=== PATIENT | female | born 1950 | race African-American/Black ===

== ENCOUNTER 2016-07-07 15:13 | Outpatient (CLI) | payer MEDICARE, OTHER ==
[2016-07-07 15:41] LABS: BASOPHILS % (AUTO) 0.5 % (0.0-2.0); DIFF TOTAL % 100 %; EOSINOPHILS # (AUTO) 0.1 /CMM (0.0-0.7); EOSINOPHILS % (AUTO) 1.8 % (0.0-6.0); HEMATOCRIT 46 % (33-45); HEMOGLOBIN 15.1 g/dL (11.5-14.8); LYMPHOCYTES # (AUTO) 2.1 /CMM (0.8-4.8); LYMPHOCYTES % (AUTO) 36.3 % (20.0-44.0); MEAN CORPUSCULAR HEMOGLOBIN 30 PG (26.0-33.0); MEAN CORPUSCULAR HGB CONC 33 g/dl (31.0-36.0); MEAN CORPUSCULAR VOLUME 93 fL (82-100); MONOCYTES # (AUTO) 0.3 /CMM (0.1-1.30); MONOCYTES % (AUTO) 4.8 % (2.0-12.0); NEUTROPHILS # (AUTO) 3.4 /CMM (1.8-8.9); NEUTROPHILS % (AUTO) 56.6 % (43.0-81.0); PLATELET COUNT (AUTO) 296 /CMM (150-450); RED BLOOD CELL COUNT(AUTO) 4.96 MIL/uL (4.0-5.2); WHITE BLOOD COUNT (AUTO) 5.9 K/uL (4.3-11.0)
[2016-07-07 16:24] LABS: ALBUMIN 3.9 g/dL (3.4-5.0); BILIRUBIN,TOTAL 0.9 mg/dL (0.2-1.0); CALCIUM, SERUM 9.5 mg/dL (8.5-10.1); CREATININE 0.8 mg/dL (0.6-1.3); POTASSIUM 4.1 mmol/L (3.5-5.1); TOTAL PROTEIN, SERUM 8.4 g/dL (6.4-8.2)
== END 2016-07-07 23:59 | disposition home or self-care (01) ==
LOC: LAB 15:13
PROVIDERS: ATTEND Internal Medicine
DX: Z01.818 Encounter for other preprocedural examination (principal); Z01.12 Encounter for hearing conservation and treatment; I70.90 Unspecified atherosclerosis
CPT/HCPCS: 36415; 71020-TC; 80053-TC; 80061-TC; 85025-TC; 85730-TC

== ENCOUNTER 2016-09-18 16:31 | Inpatient (IN) | payer OTHER, MEDICARE ==
[~2016-09-18] VITALS: Ht 167.6 cm; Wt 84.8 kg
--- NOTE | 2016-09-18 17:15 | NUR ---
PT BIB FAMILY TO ER BED 12 C/O GENERALIZED WEAKNESS, LOWER BACK PAIN AND DIZZINESS X TODAY. ALSO C/O HYPERTENSION AND HIGH BLOOD SUGAR. GOWNED AND PLACED ON MONITOR. AWAITING MD MARIA.
--- NOTE | 2016-09-18 17:18 | NUR ---
PRETTY KING AT BEDSIDE FOR EVAL.
--- NOTE | 2016-09-18 17:28 | NUR ---
STENOTYPE OPERATOR AT BEDSIDE FOR BLOOD DRAW.
[2016-09-18] MEDS ORDERED: ONDANSETRON HCL/PF 4 MG/2 ML VIAL IVP ONE (17:30)
[2016-09-18] MEDS ORDERED: IV NS 0.9% 500 ML BAG IV ONE (17:30)
[2016-09-18 17:34] LABS: BASOPHILS # (AUTO) 0.2 /CMM (0.0-0.2); BASOPHILS % (AUTO) 1.7 % (0.0-2.0); EOSINOPHILS % (AUTO) 0.1 % (0.0-6.0); HEMATOCRIT 53 % (33-45); HEMOGLOBIN 16.4 g/dL (11.5-14.8); LYMPHOCYTES # (AUTO) 0.9 /CMM (0.8-4.8); LYMPHOCYTES % (AUTO) 9.2 % (20.0-44.0); MEAN CORPUSCULAR HEMOGLOBIN 30 PG (26.0-33.0); MEAN CORPUSCULAR HGB CONC 31 g/dl (31.0-36.0); MEAN CORPUSCULAR VOLUME 97 fL (82-100); MONOCYTES # (AUTO) 0.2 /CMM (0.1-1.30); MONOCYTES % (AUTO) 2.1 % (2.0-12.0); NEUTROPHILS % (AUTO) 86.9 % (43.0-81.0); PLATELET COUNT (AUTO) 302 /CMM (150-450); RDW COEFFICIENT OF VARIATION 12.3 (11.5-15.0); RED BLOOD CELL COUNT(AUTO) 5.53 MIL/uL (4.0-5.2); WHITE BLOOD COUNT (AUTO) 10.3 K/uL (4.3-11.0)
[2016-09-18] MEDS ORDERED: IV NS 0.9% 500 ML IV ONE (17:37)
[2016-09-18] MEDS ORDERED: ONDANSETRON HCL/PF 4 MG/2 ML VIAL ONE (17:37)
[2016-09-18] MEDS ORDERED: IV SET PRIMARY 1 EA INFUS.SET MC ONE ×2 (17:37→19:19)
[2016-09-18 17:46] LABS: CALCIUM, SERUM 10.2 mg/dL (8.5-10.1); INR 1.09 (0.87-1.13); POTASSIUM 4.5 mmol/L (3.5-5.1); PROTHROMBIN TIME 11.4 SECS (9.5-12.7)
[2016-09-18 17:50] LABS: BILIRUBIN,TOTAL 1.3 mg/dL (0.2-1.0)
[2016-09-18 17:51] LABS: ALBUMIN 4.3 g/dL (3.4-5.0); BILIRUBIN,DIRECT 0.4 mg/dL (0.0-0.2); TOTAL PROTEIN, SERUM 9.5 g/dL (6.4-8.2)
--- NOTE | 2016-09-18 18:09 | NUR ---
CALLED NURSING SUP. FOR ICU BED
[2016-09-18] MEDS ORDERED: HYDR25TA4 PO (18:23)
[2016-09-18] MEDS ORDERED: METF850T2 PO (18:23)
[2016-09-18] MEDS ORDERED: AMLO5TAB2 PO (18:23)
[2016-09-18] MEDS ORDERED: IV NS 0.9% 3,000 ML ONE (18:28)
[2016-09-18] MEDS ORDERED: IV SET PRIMARY PUMP SET 1 EA INFUS.SET MC ONE ×3 (18:29→20:59)
[2016-09-18] MEDS ORDERED: IV NS 0.9% 1,000 ML BAG IV ONE ×2 (18:30→19:30)
--- NOTE | 2016-09-18 18:33 | NUR ---
DR.BRENT SERNA
--- NOTE | 2016-09-18 19:14 | NUR ---
REPAGED , DR.LING WARREN CASING IN LINE FEEDER, TRANSFERRED CALL TO
[2016-09-18] MEDS ORDERED: IV NS 0.9% 1,000 ML ONE (19:19)
[2016-09-18 20:18] LABS: APPEARANCE,URINE Clear (CLEAR); BILIRUBIN,URINE Negative (NEGATIVE); BLOOD, URINE Moderate Ery/uL (NEGATIVE); COLOR,URINE Yellow (YELLOW); KETONES,URINE Negative (NEGATIVE); LEUKOCYTE ESTERASE ,URINE Large (NEGATIVE); NITRITE, URINE Positive (NEGATIVE); PROTEIN,URINE 30 mg/dl (NEGATIVE); UGLUCOSE Negative (NEGATIVE); UROBILINOGEN,URINE 0.2 EU/dL (0.2)
[2016-09-18 20:36] LABS: ADD URINE CULTURE YES; BACTERIA,URINE Moderate /HPF (None Seen); SQUAMOUS EPITHELIAL CELL,UR Few /HPF (None Seen); WBC,URINE 21-50 /HPF (0-3)
--- NOTE | 2016-09-18 20:41 | NUR ---
REPORT GIVEN TO KARIS. PT AWAITING TRANSFER TO FLOOR.
[2016-09-18 20:50] LABS: ABG BASE EXCESS -13.5 mmol/L; ABG PCO2 22.8 mmHg (35.0-45.0); ABG PH 7.293 (7.350-7.450); ABG PO2 85.5 mmHg (75.0-100.0); AaDO2 36.9 mmHg; COHb 0.8 % (0.5-1.5); MetHb 0.5 % (0.0-1.5); O2Hb 93.8 % (94.0-97.0); SITE, ABG Right Radial; VENT MODE, BG RM AIR
[2016-09-18] MEDS: INSULIN REGULAR, HUMAN 100 UNIT in IV NS 0.9% 99 ML IV PRN ×4 (20:54→22:16)
[2016-09-18] MEDS ORDERED: CEFTRIAXONE 1GM BAG (ER ONLY) 50 ML IV ONE (20:59)
[2016-09-18] MEDS ORDERED: CEFTRIAXONE 1GM BAG (ER ONLY) 1 GM/50 ML PIGGYBACK IV ONE (21:00)
--- NOTE | 2016-09-18 21:17 | NUR ---
COLD WATER MACHINE OPERATOR DF I RECEIVED PT TO ROOM#260 FROM ER, PT A/OX4 LAST ACCU CHECK@2035 >600 PT STARTED ON INSULIN GTT AT 6UNITS/HR PT RECEIVED WITH ROCEPHIN ORDER ENDORSED TO ICU. PT RECEIVED WITH NO ADMITTING ORDERS INSTRUCTOR DRAMATIC ARTSNANCY TEE TO INQUIRE ON ADMITTING ORDERS.I WILL RECHECK PT,S GLUCOSE IN 30 MINUTES TO 1 HOUR. Addendum: 09/18/16 at 2157 by RACHELLE CAMPOS RN ADMITTING ORDERS RECEIVED FROM ARNOL DUMONT NP INSULIN GTT START ALGORITHM1 FOLLOW NON DKA PROTOCOL,NS@8OML/HR,LABS IN AM.I WAS ADVISED BY OSMAN DUMONT TO CALL THE [facility](I ADVISED HER WE DO NOT HAVE THE SERVICE HERE)PER LANE MARKER INSTALLER DR ROCHA TO SEE PT IN AM.
[2016-09-18 21:25] VITALS: BP 138/77
[2016-09-18 21:26] VITALS: BP 138/77
[2016-09-18 21:30] VITALS: BP 133/75
[2016-09-18 22:00] VITALS: BP 118/65
[2016-09-18] MEDS ORDERED: INSULIN REGULAR, HUMAN 100 UNIT in IV NS 0.9% 99 ML IV PRN ×2 (22:00)
[2016-09-18] MEDS ORDERED: ONDANSETRON HCL/PF 4 MG/2 ML VIAL IV PRN (22:00)
[2016-09-18] MEDS ORDERED: IV NS 0.9% 1,000 ML BAG IV PRN (22:00)
--- NOTE | 2016-09-18 22:04 | NUR ---
PENOLOGY TEACHER DF PT WITH GLUCOSE ON ACCU CHECK ABOVE 600 STAT GLUCOSE ORDERED/BMP. PER PROTOCOL MOVED TO ALGORITHM 2 2ND GLUCOSE DID NOT DECREASE BY 50-70MG/DL WITHIN 1 HOUR. NEW INSULIN GTT RATES OF 10 UNITS HOUR/IV.
--- NOTE | 2016-09-18 22:54 | NUR ---
SLEEPER CUTTER DF STAT BMP DRAWN AWAITING RESULTS, PT GLUCOSE ON GLUCOMETER SHOWING ABOVE 600 PER PROTOCOL PT CONTINUED ON 10UNITS/HR.
[2016-09-18 23:00] VITALS: BP 120/66
[2016-09-18 23:14] LABS: CALCIUM, SERUM 8.3 mg/dL (8.5-10.1); CREATININE 1.4 mg/dL (0.6-1.3); POTASSIUM 3.4 mmol/L (3.5-5.1)
[2016-09-18] MEDS ORDERED: KETOROLAC TROMETHAMINE INJ 30 MG/ML VIAL ONE (23:58)
--- NOTE | 2016-09-18 23:59 | NUR ---
REGISTERED DENTAL ASSISTANT RDA DF PT C/O OF ABDOMINAL PAIN 09/16 PT ADMITTING K OF 4.5 NOW K OF 3.4 (20 MEQ KDUR PO X1 TO BE GIVEN) NO FURTHER ORDERS. PT VSS. PT A/OX4 PT DROWSY,PASSIVE. PT CONVERSES STATES SHE IS TIRED AND DIDNT HAVE MUCH SLEEP PRIOR TO ADMISSION. LAST BS OF 511 ON INSULIN GTT @ 10 UNITS/HOUR PER ALGORITHM 2. Addendum: 09/19/16 at 0023 by RACHELLE CAMPOS RN TORADOL 30MG IVP PRN ABDOMINAL PAIN PT REPORTS SHE NOT ALLERGIC TO IBUPROFEN WHEN TAKEN ORALLY GIVES HER STOMACH ACHE NO OTHER ADVERSE REACTION REPORTED. MD/VALVE SETTER AWARE MEDICATED ORDERED. Addendum: 09/19/16 at 0111 by RACHELLE CAMPOS RN KCL ORDER CHANGED TO IV PT REFUSES PO INTAKE 2ND ABD PAIN. SEE VALVE SETTER ORDERS.
[2016-09-19] VITALS (31 sets, daily range): BP systolic 98–167; BP diastolic 52–107
[2016-09-19] MEDS ORDERED: KETOROLAC TROMETHAMINE INJ 30 MG/ML VIAL IV PRN
[2016-09-19] MEDS ORDERED: POTASSIUM CHLORIDE 20 MEQ TAB.PRT.SR PO ONE (00:01)
[2016-09-19] MEDS: POTASSIUM CHLORIDE 20 MEQ TAB.PRT.SR PO ONE ×2 (00:05→00:19)
[2016-09-19] MEDS ORDERED: POTASSIUM CL. PREMIX PERIPHER. 100 ML ONE (00:09)
[2016-09-19] MEDS ORDERED: IV SET PRIMARY PUMP SET 1 EA INFUS.SET MC ONE (00:10)
[2016-09-19] MEDS ORDERED: POTASSIUM CHLORIDE 10 MEQ/50 ML PREMIXED IVPB FOR PERIPHERAL LINE IV ONE (00:30)
--- NOTE | 2016-09-19 01:40 | NUR ---
SEED AND FERTILIZER SPECIALIST DF LAST ACCU CHECK OF 285 PER NON DKA INSULIN ORDERS ALGORITHM 2 BS OF 285 6 UNITS/HR.
--- NOTE | 2016-09-19 04:21 | NUR ---
PYROMETER TEMPERATURE REGULATOR DF LAST ACCU CHECK OF 243 PER NON DKA INSULIN ORDERS ALGORITHM 2 BS OF 285 5 UNITS/HR.
[2016-09-19 04:59] LABS: BASOPHILS % (AUTO) 0.2 % (0.0-2.0); EOSINOPHILS % (AUTO) 0.1 % (0.0-6.0); HEMATOCRIT 44 % (33-45); HEMOGLOBIN 14.7 g/dL (11.5-14.8); LYMPHOCYTES # (AUTO) 1.8 /CMM (0.8-4.8); LYMPHOCYTES % (AUTO) 16.9 % (20.0-44.0); MEAN CORPUSCULAR HEMOGLOBIN 30 PG (26.0-33.0); MEAN CORPUSCULAR HGB CONC 33 g/dl (31.0-36.0); MEAN CORPUSCULAR VOLUME 92 fL (82-100); MONOCYTES # (AUTO) 0.8 /CMM (0.1-1.30); MONOCYTES % (AUTO) 7.3 % (2.0-12.0); NEUTROPHILS # (AUTO) 8.3 /CMM (1.8-8.9); NEUTROPHILS % (AUTO) 75.5 % (43.0-81.0); PLATELET COUNT (AUTO) 269 /CMM (150-450); RDW COEFFICIENT OF VARIATION 12.3 (11.5-15.0); RED BLOOD CELL COUNT(AUTO) 4.83 MIL/uL (4.0-5.2); WHITE BLOOD COUNT (AUTO) 10.9 K/uL (4.3-11.0)
[2016-09-19 05:09] LABS: CALCIUM, SERUM 8.5 mg/dL (8.5-10.1); CREATININE 1.3 mg/dL (0.6-1.3); POTASSIUM 3.6 mmol/L (3.5-5.1)
--- NOTE | 2016-09-19 07:20 | NUR ---
SPINNING BATH PATROLLER: pt.is able to seat up, able to use bathroom by report, was notified re fall risk precaution
[2016-09-19] MEDS ORDERED: IV NS 0.9% 1,000 ML IV PRN (08:00)
--- NOTE | 2016-09-19 08:00 | NUR ---
SHIPFITTER APPRENTICE pt.is drowsy now, no c/o pain, no any c/o now, reactive well, A/Ox1, SR, O2 sat., BP WNL, on insulin gtt, algorithm #2, IVF NS 80ml/h, pt.sister called, updated with pt.current condition
[2016-09-19] MEDS: METFORMIN 850 MG TABLET PO SCH ×2 (09:00→16:53)
[2016-09-19] MEDS ORDERED: HYDROCHLOROTHIAZIDE 25 MG TABLET PO SCH (09:00)
--- NOTE | 2016-09-19 09:05 | NUR ---
TANK OPERATOR: pi is on insulin gtt, hold glucophage
[2016-09-19] MEDS: AMLODIPINE BESYLATE 5 MG TABLET PO SCH (10:09)
--- NOTE | 2016-09-19 10:10 | NUR ---
DISTRESSER: pt.is A/Ox3, weak, no any acute pain now, SR, O2sat WNL, on insulin gtt/BS 163-197, refused to take bedsite commode, able to urinate
--- NOTE | 2016-09-19 13:51 | NUR ---
FINANCIAL SALES CONSULTANT: was in unit, updated with pt.current condition, VS, BG, insulin gtt, IVF, spoke with charge nurse, ordered start Levemir 30units q12h, stop insulin gtt in 1 hr, start insulin mild SS accuV AC&HS
[2016-09-19] MEDS ORDERED: DEXTROSE 50%-WATER 50 ML DISP.SYRIN IV PRN (14:00)
[2016-09-19] MEDS: INSULIN DETEMIR 100 UNIT/ML CARTRIDGE SQ SCH ×2 (14:10→21:18)
--- NOTE | 2016-09-19 14:24 | NUR ---
CHIEF CLERK: BS 178, Levemir 30units SQ was given, stop Insulin gtt at 16.00 order is in per
--- NOTE | 2016-09-19 14:28 | NUR ---
UTILITY HELICOPTER REPAIRER: confirmed: continue Glucophage 850mg PO BID and IVF, ok transfer pt. after insulin gtt will be stop, pt.family is in room, updated with POC, all above
--- NOTE | 2016-09-19 14:50 | NUR ---
PROP DRAWER: pt.family is in room/notified re POC, orders, VS, changed IVF for 1/2 NS@75ml/h
[2016-09-19] MEDS ORDERED: IV 1/2NS 1000 ML 1,000 ML IV ONE (15:00)
--- NOTE | 2016-09-19 17:15 | NUR ---
TIN RECOVERY WORKER: pt.is transferred to [facility] after full report for NANCY Killian
--- NOTE | 2016-09-19 17:20 | NUR ---
RN NOTES PT RECEIVED FROM ICU IN ROOM 111-1 , PT IS A/Ox4, RESPIRATION EVEN AND UNLABORED, ON RA , NO SOB NOTED, R HAND IV AND R AC IV SITES G 20, CLEAN AND DRY , IVF 1/2 NS AT 75CC/HR RUNNING VIA R HAND IV SITE, SUPPORTIVE FAMILY AT THE BEDSIDE, PT BYRON ANY DISTRESS AT THIS TIME, CONTINUE TO MONITOR PT CLOSELY AND NOTIFY MD FOR ANY SIGNIFICANT CHANGES .
[2016-09-19] MEDS: INSULIN REGULAR, HUMAN 100 UNIT/ML 3 ML VIAL SQ PRN ×2 (17:31→21:19)
[2016-09-19] MEDS: BLOOD SUGAR DIAGNOSTIC 1 EACH STRIP IN SCH ×2 (17:33→21:16)
[2016-09-19] MEDS: ACETAMINOPHEN W/ CODEINE#3 1 EA TABLET PO PRN ×2 (18:25→22:27)
[2016-09-19] MEDS: ATORVASTATIN 40 MG TABLET PO SCH (21:16)
[2016-09-20 04:00] VITALS: BP 121/76
[2016-09-20] MEDS: ACETAMINOPHEN W/ CODEINE#3 1 EA TABLET PO PRN ×3 (05:16→22:12)
[2016-09-20] MEDS: BLOOD SUGAR DIAGNOSTIC 1 EACH STRIP IN SCH ×4 (06:34→22:12)
[2016-09-20] MEDS: INSULIN REGULAR, HUMAN 100 UNIT/ML 3 ML VIAL SQ PRN ×3 (06:36→17:58)
--- NOTE | 2016-09-20 07:15 | NUR ---
RN INITIAL NOTES: Rec'd pt awake on bed, not in any distress, A/O x4, denies any pain/ discomfort. Pt on room air, no SOB noted, saturating at 98%. Pt has R AC G20 SL and R wrist G20 SL, both flushed, patent & intact w/ no signs of infection/ infiltration noted. Provided comfort & safety measures. Needs attended. Call light placed w/in reach. Bed kept low & in locked position. Will continue to monitor.
[2016-09-20 07:53] LABS: CALCIUM, SERUM 8.3 mg/dL (8.5-10.1); CREATININE 0.8 mg/dL (0.6-1.3)
[2016-09-20 08:00] VITALS: BP 118/79
[2016-09-20 08:04] LABS: POTASSIUM 2.7 mmol/L (3.5-5.1)
[2016-09-20] MEDS: ASPIRIN 81 MG TAB.CHEW PO SCH (08:28)
[2016-09-20] MEDS: METFORMIN 850 MG TABLET PO SCH ×2 (08:28→17:53)
[2016-09-20] MEDS: BENAZEPRIL HCL 10 MG TABLET PO SCH (08:29)
[2016-09-20] MEDS: AMLODIPINE BESYLATE 5 MG TABLET PO SCH (08:29)
[2016-09-20] MEDS: HYDROCHLOROTHIAZIDE 25 MG TABLET PO SCH (08:29)
--- NOTE | 2016-09-20 08:30 | NUR ---
RN NOTES: MD made aware of low potassium 2.7, w/ orders & carried out.
[2016-09-20] MEDS: INSULIN DETEMIR 100 UNIT/ML CARTRIDGE SQ SCH ×2 (08:33→22:20)
[2016-09-20] MEDS: POTASSIUM CHLORIDE 20 MEQ TAB.PRT.SR PO SCH ×3 (09:27→14:22)
--- NOTE | 2016-09-20 11:00 | NUR ---
RN NOTES: Pt positive for MRSA of urine. Isolation precaution observed. CN notified.
--- NOTE | 2016-09-20 11:23 | NUR ---
RN NOTES: Pt seen & examined by Dr. Baum.
[2016-09-20 16:00] VITALS: BP_SYST 100; BP_SYST 90; BP_DIAS 60; BP_DIAS 79
--- NOTE | 2016-09-20 18:57 | NUR ---
RN CLOSING NOTES: No acute changes noted w/in shift. Pt A/O x4, denies any pain/ discomfort, no desaturation while on room air. R AC G20 SL and R wrist G20 SL, kept patent & intact w/ no signs of infection/ infiltration noted. Kept well rested. Needs attended. Call light placed w/in reach. Bed kept low & in locked position. Will endorse to PM RN for LESLIE.
--- NOTE | 2016-09-20 19:35 | NUR ---
all [facility] cleard for pt safety
[2016-09-20 20:00] VITALS: BP 114/76
[2016-09-20] MEDS: ATORVASTATIN 40 MG TABLET PO SCH (22:12)
[2016-09-21] MEDS: INSULIN REGULAR, HUMAN 100 UNIT/ML 3 ML VIAL SQ PRN ×5 (00:24→23:55)
[2016-09-21 04:00] VITALS: BP 106/46
[2016-09-21 05:12] VITALS: BP 106/46
[2016-09-21] MEDS: BLOOD SUGAR DIAGNOSTIC 1 EACH STRIP IN SCH ×4 (06:37→21:18)
--- NOTE | 2016-09-21 07:25 | NUR ---
RN INITIAL NOTES RECEIVED PT IN BED, A/O X4, ABLE TO MAKES NEED KNOWN, PT IS ON RA, SATING WELL, NO S/S OF RESP.DISTRESS OR SOB NOTED AT THIS TIME, PT HAS NO C/O OF CHEST PAIN OR SOB NOTED AT THIS TIME, PT HAS AMBULATORY, PT HAS RAC #20G,SL, R HAND # 20G,SL, C/D/I/PATENT, FLUSHING WELL, NO S/S OF INFECTION/INFILTRATION NOTED AT THIS TIME, ALL NEEDS MET AT THIS TIME, ALL SAFETY MEASURES IN PLACE AT ALL TIMES, CALL LIGHT WITHIN EASY REACH, WILL MONITOR PT CLOSELY
--- NOTE | 2016-09-21 07:34 | NUR ---
RN CLOSING NOTES NO SIGNIFICANT CHANGES OVERNIGHT, NO S/SX OF HYPER/HYPOGLYCEMIA NOTED, ALL MEDS GIVEN ORDER, PT SASHA IT WELL, ALL SAFETY MEASURES MAINTAINED. CALL LIGHT WITHIN REACH, ENDORSED TO THE AM NURSE FOR CONTINUATION OF CARE
[2016-09-21 07:57] LABS: CALCIUM, SERUM 8.5 mg/dL (8.5-10.1); CREATININE 0.8 mg/dL (0.6-1.3)
[2016-09-21 08:00] VITALS: BP 110/70
[2016-09-21] MEDS: ACETAMINOPHEN W/ CODEINE#3 1 EA TABLET PO PRN ×3 (08:40→20:31)
[2016-09-21] MEDS: ASPIRIN 81 MG TAB.CHEW PO SCH (08:42)
[2016-09-21] MEDS: METFORMIN 850 MG TABLET PO SCH ×2 (08:42→17:22)
[2016-09-21] MEDS: AMLODIPINE BESYLATE 5 MG TABLET PO SCH (08:43)
[2016-09-21] MEDS: BENAZEPRIL HCL 10 MG TABLET PO SCH (08:43)
[2016-09-21] MEDS: HYDROCHLOROTHIAZIDE 25 MG TABLET PO SCH (08:43)
[2016-09-21] MEDS: INSULIN DETEMIR 100 UNIT/ML CARTRIDGE SQ SCH ×2 (08:47→21:24)
[2016-09-21] MEDS ORDERED: POTASSIUM CL. PREMIX PERIPHER. 50 ML IV SCH (11:30)
[2016-09-21] MEDS: POTASSIUM CHLORIDE 20 MEQ POWDER PACKET PO SCH ×3 (13:01→14:11)
[2016-09-21 16:00] VITALS: BP 120/69
--- NOTE | 2016-09-21 18:37 | NUR ---
RN CLOSING NOTES PT REMAINED STABLE DURING SHIFT,ALL MEDICATIONS GIVEN, ALL MD ORDERS CARRIED OUT, PT KEPT CLEAN AND DRY, ALL SAFETY MEASURES IN PLACE AT ALL TIMES, CALL LIGHT WITHIN EASY, ISOLATION PRECAUTIONS IN PLACE AT ALL TIMES, REPORT WILL BE GIVEN TO PM RN FOR LESLIE
--- NOTE | 2016-09-21 19:20 | NUR ---
RN INITIAL NOTES PT IS RESTING IN BED, NO S/SX OF ANY ACUTE DISTRESS NOTED, ON ROOM AIR AND SATURATING WELL, SL IN R AC IV SITE IS FLUSHED AND PATENT. INDEPENDENT WITH BED MOBILITY, BRP. SIDERAILS UP, BED LOCKED AND IN LOWEST POSITION, CALL LIGHTS WITHIN REACH
[2016-09-21 20:00] VITALS: BP 112/78
[2016-09-21 20:55] VITALS: BP 112/78
[2016-09-21] MEDS: ATORVASTATIN 40 MG TABLET PO SCH (21:21)
[2016-09-22 04:00] VITALS: BP 123/86
--- NOTE | 2016-09-22 06:38 | NUR ---
RN CLOSING NOTES NO SIGNIFICANT CHANGES OVERNIGHT, BLOOD SUGAR CHECKED ORDERED, NO S/SX OF HYPER/HYPOGLYCEMIA NOTED, ALL MEDS GIVEN ORDER, PT SASHA IT WELL, IV SITES PATENT, NO S/SX OF INFECTION/INFILTRATION. ALL SAFETY MEASURES MAINTAINED. CALL LIGHT WITHIN REACH, WILL ENDORSE TO THE AM NURSE FOR CONTINUATION OF CAR
[2016-09-22] MEDS: BLOOD SUGAR DIAGNOSTIC 1 EACH STRIP IN SCH ×2 (06:44→11:45)
--- NOTE | 2016-09-22 07:00 | NUR ---
received pt in bed,no c/o pain,no s/s of distress.breathing even and unlabored.i.v site cdi and patent.safety measures in place bed in low and locked position.will continue to monitor for changes
[2016-09-22 07:21] LABS: CALCIUM, SERUM 9.1 mg/dL (8.5-10.1); CREATININE 0.8 mg/dL (0.6-1.3)
[2016-09-22 08:00] VITALS: BP 115/75
[2016-09-22] MEDS: BENAZEPRIL HCL 10 MG TABLET PO SCH (08:18)
[2016-09-22] MEDS: HYDROCHLOROTHIAZIDE 25 MG TABLET PO SCH (08:18)
[2016-09-22] MEDS: ACETAMINOPHEN W/ CODEINE#3 1 EA TABLET PO PRN ×2 (08:18→13:10)
[2016-09-22] MEDS: ASPIRIN 81 MG TAB.CHEW PO SCH (08:18)
[2016-09-22] MEDS: METFORMIN 850 MG TABLET PO SCH (08:18)
[2016-09-22] MEDS: INSULIN DETEMIR 100 UNIT/ML CARTRIDGE SQ SCH (08:23)
[2016-09-22] MEDS ORDERED: IV SET PRIMARY PUMP SET 1 EA INFUS.SET MC ONE (11:16)
[2016-09-22] MEDS ORDERED: SECONDARY IV SET 1 EA INFUS.SET MC ONE (11:16)
[2016-09-22] MEDS ORDERED: IV NS 0.9% 250 ML IV ONE (11:17)
[2016-09-22] MEDS ORDERED: POTASSIUM CL. PREMIX PERIPHER. 50 ML IV SCH (11:30)
[2016-09-22] MEDS ORDERED: POTASSIUM CHLORIDE 20 MEQ TAB.PRT.SR PO ONE (11:45)
[2016-09-22 12:00] VITALS: BP 123/86
[2016-09-22] MEDS ORDERED: POTASSIUM CHLORIDE 10 MEQ TABLET.SA PO ONE (13:00)
--- NOTE | 2016-09-22 16:50 | NUR ---
pt d/c home with family.all m.d orders noted and carried out.pt in stable condition.discharge teaching and belongings provided to patient.
[2016-09-22] MEDS ORDERED: SPIRONOLACTONE 25 MG TABLET PO SCH (17:00)
[2016-09-23] MEDS ORDERED: LINAGLIPTIN 5 MG TABLET PO SCH (09:00)
[2016-09-23] MEDS ORDERED: SITAGLIPTIN PHOSPHATE 50 MG TABLET PO SCH (09:00)
== END 2016-09-22 16:58 | disposition home or self-care (01) | DRG 420 ==
LOC: ER 16:33 → ICU 19:15 → MEDSG1 09-19 17:17
PROVIDERS: ADMIT Nurse Practitioner Primary Care; ATTEND Nurse Practitioner Primary Care
DX: E11.00 Type 2 diabetes mellitus with hyperosmolarity without nonketotic hyperglycemic-hyperosmolar coma (NKHHC) (principal); N17.0 Acute kidney failure with tubular necrosis; E87.0 Hyperosmolality and hypernatremia; B95.62 Methicillin resistant Staphylococcus aureus infection as the cause of diseases classified elsewhere; E11.21 Type 2 diabetes mellitus with diabetic nephropathy; I25.10 Atherosclerotic heart disease of native coronary artery without angina pectoris; J44.9 Chronic obstructive pulmonary disease, unspecified; Z91.19 Patient's noncompliance with other medical treatment and regimen; Z87.891 Personal history of nicotine dependence; N18.9 Chronic kidney disease, unspecified; E11.22 Type 2 diabetes mellitus with diabetic chronic kidney disease; Z79.84 Long term (current) use of oral hypoglycemic drugs; E87.6 Hypokalemia; E66.9 Obesity, unspecified; Z68.30 Body mass index [BMI] 30.0-30.9, adult; M51.36 Other intervertebral disc degeneration, lumbar region; M19.90 Unspecified osteoarthritis, unspecified site; Z83.3 Family history of diabetes mellitus; Z91.11 Patient's noncompliance with dietary regimen; I45.81 Long QT syndrome; N39.0 Urinary tract infection, site not specified; I12.9 Hypertensive chronic kidney disease with stage 1 through stage 4 chronic kidney disease, or unspecified chronic kidney disease
CPT/HCPCS: 36415; 36600; 71010-TC; 80048-TC; 80076-TC; 81000-TC; 82803-TC; 82962-TC; 83605-TC; 83690-TC; 83735-TC; 85025-TC; 85730-TC; 87081-TC; 87086-TC; A4606; J0696; J1815; J1885; J2405; J3480; J3490; J7030; J7040; J7050; Z7610

== ENCOUNTER 2018-01-12 18:22 | Emergency (ER) | payer OTHER, MEDICARE ==
[~2018-01-12] VITALS: Ht 165.1 cm; Wt 83.9 kg
[~2018-01-12 18:22] MED LIST: AMLO5TAB2 PO; HYDR25TA4 PO; METF850T2 PO
[2018-01-12 19:20] VITALS: BP 161/110
[2018-01-12 20:09] LABS: APPEARANCE,URINE CLEAR (CLEAR); BILIRUBIN,URINE NEGATIVE (NEGATIVE); BLOOD, URINE 3+ Ery/uL (NEGATIVE); COLOR,URINE YELLOW (YELLOW); KETONES,URINE NEGATIVE (NEGATIVE); LEUKOCYTE ESTERASE ,URINE NEGATIVE (NEGATIVE); NITRITE, URINE NEGATIVE (NEGATIVE); PROTEIN,URINE NEGATIVE (NEGATIVE); UGLUCOSE NEGATIVE (NEGATIVE)
[2018-01-12 20:15] LABS: RBC,URINE 21-50 /HPF (0-2)
[2018-01-12 20:16] LABS: BACTERIA,URINE None seen /HPF (None Seen); SQUAMOUS EPITHELIAL CELL,UR Few /HPF (None Seen)
[2018-01-12 20:17] LABS: BASOPHILS # (AUTO) 0.1 /CMM (0.0-0.2); BASOPHILS % (AUTO) 1.7 % (0.0-2.0); EOSINOPHILS % (AUTO) 1.9 % (0.0-6.0); HEMATOCRIT 45 % (33-45); HEMOGLOBIN 14.3 g/dL (11.5-14.8); LYMPHOCYTES # (AUTO) 2.6 /CMM (0.8-4.8); LYMPHOCYTES % (AUTO) 38.7 % (20.0-44.0); MEAN CORPUSCULAR HEMOGLOBIN 30 PG (26.0-33.0); MEAN CORPUSCULAR HGB CONC 32 g/dl (31.0-36.0); MEAN CORPUSCULAR VOLUME 94 fL (82-100); MONOCYTES # (AUTO) 0.3 /CMM (0.1-1.30); MONOCYTES % (AUTO) 3.8 % (2.0-12.0); NEUTROPHILS # (AUTO) 3.7 /CMM (1.8-8.9); NEUTROPHILS % (AUTO) 53.9 % (43.0-81.0); PLATELET COUNT (AUTO) 326 /CMM (150-450); RED BLOOD CELL COUNT(AUTO) 4.81 MIL/uL (4.0-5.2); WHITE BLOOD COUNT (AUTO) 6.8 K/uL (4.3-11.0)
[2018-01-12 20:32] LABS: INR 0.99 (0.85-1.15)
[2018-01-12 20:34] LABS: ALBUMIN 3.8 g/dL (3.4-5.0); BILIRUBIN,DIRECT 0.1 mg/dL (0.0-0.2); BILIRUBIN,TOTAL 0.7 mg/dL (0.2-1.0); CALCIUM, SERUM 9.5 mg/dL (8.5-10.1); CREATININE 0.9 mg/dL (0.6-1.3); TOTAL PROTEIN, SERUM 7.6 g/dL (6.4-8.2)
--- NOTE | 2018-01-12 20:38 | NUR ---
PAGED DR. GLENN ROCHA
== END 2018-01-12 20:55 | disposition home or self-care (01) ==
LOC: ER 18:42
DX: R31.9 Hematuria, unspecified (principal); I10 Essential (primary) hypertension; E11.9 Type 2 diabetes mellitus without complications; Z88.6 Allergy status to analgesic agent; Z79.899 Other long term (current) drug therapy; Z79.84 Long term (current) use of oral hypoglycemic drugs
CPT/HCPCS: 36415; 80048-TC; 80076-TC; 81000-TC; 82962-TC; 83690-TC; 85025-TC; 85730-TC; A4606; Z7610

== ENCOUNTER 2019-11-06 12:43 | Outpatient (CLI) | payer MEDICARE, OTHER ==
[~2019-11-06 12:43] MED LIST changes: -AMLO5TAB2 PO; +AMLO5TAB9 PO; +METF-441 PO; -METF850T2 PO
== END 2019-11-06 23:59 | disposition home or self-care (01) ==
LOC: LAB 12:43 → US 23:59
PROVIDERS: ATTEND Internal Medicine
DX: R31.0 Gross hematuria (principal)
CPT/HCPCS: 76770-TC

== ENCOUNTER 2020-01-04 13:34 | Emergency (ER) | payer OTHER ==
[~2020-01-04] VITALS: Ht 165.1 cm; Wt 59.0 kg
--- NOTE | 2020-01-04 13:35 | NUR ---
PT BIB SELF C/O FLANK PAIN X 1 YR. PT IS AAOX4, NOT IN RESPIRATORY DISTRESS, V/S STABLE, KEPT RESTED AND COMFORTABLE. WILL CONTINUE TO MONITOR. AWAITING ER MD FOR EVAL.
--- NOTE | 2020-01-04 14:14 | NUR ---
SEEN AND EXAMINED BY .
--- NOTE | 2020-01-04 14:30 | NUR ---
IV LINE ESTABLISHED BLOOD DRAWN AND SENT TO LAB.
[2020-01-04] MEDS: IV NS 0.9% 1,000 ML BAG IV ONE (14:35)
--- NOTE | 2020-01-04 14:35 | NUR ---
RETORT KILN BURNER AT BEDSIDE FOR XRAY.
[2020-01-04 14:38] LABS: BASOPHILS # (AUTO) 0.1 /CMM (0.0-0.2); BASOPHILS % (AUTO) 0.9 % (0.0-2.0); EOSINOPHILS % (AUTO) 0.6 % (0.0-6.0); HEMATOCRIT 32 % (33-45); HEMOGLOBIN 9.8 g/dL (11.5-14.8); LYMPHOCYTES # (AUTO) 1.8 /CMM (0.8-4.8); LYMPHOCYTES % (AUTO) 22.2 % (20.0-44.0); MEAN CORPUSCULAR HGB CONC 31 g/dl (31.0-36.0); MEAN CORPUSCULAR VOLUME 85 fL (82-100); MONOCYTES # (AUTO) 0.6 /CMM (0.1-1.30); MONOCYTES % (AUTO) 7.7 % (2.0-12.0); NEUTROPHILS # (AUTO) 5.5 /CMM (1.8-8.9); NEUTROPHILS % (AUTO) 68.6 % (43.0-81.0); PLATELET COUNT (AUTO) 451 /CMM (150-450); RED BLOOD CELL COUNT(AUTO) 3.76 MIL/uL (4.0-5.2)
--- NOTE | 2020-01-04 14:42 | NUR ---
PT IS WHEELED TO CT SCAN VIA [facility].
[2020-01-04 14:46] LABS: CALCIUM, SERUM 9.3 mg/dL (8.5-10.1); CREATININE 0.8 mg/dL (0.6-1.3); POTASSIUM 3.2 mmol/L (3.5-5.1)
[2020-01-04 14:51] LABS: ALBUMIN 2.2 g/dL (3.4-5.0); BILIRUBIN,DIRECT 0.2 mg/dL (0.0-0.2); BILIRUBIN,TOTAL 0.7 mg/dL (0.2-1.0); TOTAL PROTEIN, SERUM 9.2 g/dL (6.4-8.2)
[2020-01-04] MEDS ORDERED: FENTANYL PF 100MCG/2ML AMPUL ONE (15:41)
[2020-01-04] MEDS: FENTANYL PF 100MCG/2ML AMPUL IV ONE (15:43)
--- NOTE | 2020-01-04 16:39 | NUR ---
URINE SPECIMEN COLLECTED AND SENT TO LAB.
[2020-01-04 16:44] LABS: APPEARANCE,URINE Clear (CLEAR); BILIRUBIN,URINE Negative (NEGATIVE); BLOOD, URINE Moderate Ery/uL (NEGATIVE); COLOR,URINE Yellow (YELLOW); KETONES,URINE Negative (NEGATIVE); LEUKOCYTE ESTERASE ,URINE Small (NEGATIVE); NITRITE, URINE Negative (NEGATIVE); PH,URINE 6.5 (5.0-8.0); PROTEIN,URINE 100 mg/dl (NEGATIVE); UGLUCOSE Negative (NEGATIVE); UROBILINOGEN,URINE 0.2 EU/dL (0.2)
[2020-01-04 16:56] LABS: BACTERIA,URINE 1+ /HPF (None Seen); SQUAMOUS EPITHELIAL CELL,UR Few /HPF (None Seen)
[2020-01-04] MEDS ORDERED: HYDROCODONE/APAP 5/325MG TABLET ONE (18:26)
[2020-01-04] MEDS: HYDROCODONE/APAP 5/325MG TABLET PO ONE (18:30)
[2020-01-04 18:50] VITALS: BP 141/88
--- NOTE | 2020-01-04 18:50 | NUR ---
IV removed. Catheter intact and site benign. Pressure and 4x4 applied to site. No bleeding noted. Patient discharged to home in stable condition. Written and verbal after care instructions given. Patient verbalizes understanding of instruction.
== END 2020-01-04 18:51 | disposition home or self-care (01) ==
LOC: ER 13:41
DX: R10.84 Generalized abdominal pain (principal); N93.9 Abnormal uterine and vaginal bleeding, unspecified; N39.0 Urinary tract infection, site not specified; R59.0 Localized enlarged lymph nodes; N85.8 Other specified noninflammatory disorders of uterus; E87.6 Hypokalemia; D64.9 Anemia, unspecified; D69.6 Thrombocytopenia, unspecified; R19.7 Diarrhea, unspecified; I10 Essential (primary) hypertension; E11.9 Type 2 diabetes mellitus without complications; J44.9 Chronic obstructive pulmonary disease, unspecified; E66.9 Obesity, unspecified; G89.29 Other chronic pain; M54.5 Low back pain; Z68.21 Body mass index [BMI] 21.0-21.9, adult; Z88.6 Allergy status to analgesic agent; Z79.84 Long term (current) use of oral hypoglycemic drugs; Z79.899 Other long term (current) drug therapy
CPT/HCPCS: 36415; 71045; 74176; 76856; 80048; 80076; 81001; 83690; 85025; 87086; 96361; 96374; 99285; J3010; J7030; 81000-TC